=== PATIENT | male | born 2005 | race Caucasian/White ===

== ENCOUNTER 2025-05-27 18:18 | Emergency (ER) | payer BC, SELFPAY ==
[2025-05-27 18:33] VITALS: BP 119/63; PULSE 66; RESP 20; TEMP 36.8; O2SAT 100
--- NOTE | 2025-05-27 18:36 | ED.EAR ---
HPI - Ear Problem General Chief complaint: Ear Stated complaint: Pain in eardrum in right side patient presents to the [facility] accompanied by significant other with complaints of right ear pain that began over the last few days. patient noted cold-like symptoms for the last week week and a half which have improved but then noticed the ear pain and pain down hit the side of his back. Patient reports he is prone to ear infections and believes that this is what he has. Has been using ibuprofen but this is no longer helping with the pain. Denies fever, chills, body aches, dizziness, drainage from the right ear, sore throat, difficulty swallowing, nausea, vomiting, diarrhea. Related Data Allergies Allergy/AdvReac Type Severity Reaction Status Date / Time No Known Allergies Allergy Verified 05/27/25 18:39 Review of Systems Constitutional: Constitutional: Reports as per HPI, Denies chills, Denies fatigue, Denies fever(s) and Denies weakness Eyes: Eyes: Reports no additional eye complaints ENT: Reports as per HPI, Denies vertigo, Denies dizziness, Denies nasal congestion and Denies sore throat Comments: Right ear pain Cardiovascular: Cardiovascular: Reports no additional cardiovascular complaints Respiratory: Respiratory: Reports as per HPI, Denies chest congestion, Denies cough, Denies dyspnea and Denies wheezing Gastrointestinal: Gastrointestinal: Reports no additional gastrointestinal complaints Genitourinary: Genitourinary: Reports no additional male genitourinary complaints Musculoskeletal: Musculoskeletal: Reports as per HPI, Denies back pain and Denies myalgias Integumentary/Breasts: Skin/Breast: Reports as per HPI, Denies erythema and Denies rash Neurologic: Reports as per HPI, Denies vertigo, Denies dizziness, Reports headache(s) and Denies weakness Psychiatric: Psychiatric: Reports no additional psychiatric complaints Endocrine: Endocrine: Reports no additional endocrine complaints Hematologic/Lymphatic: Hematologic/Lymphatic: Reports no additional hematologic/lymphatic complaints Allergic/Immunologic: Allergic/Immunologic: Reports no additional allergic/immunologic complaints Exam Const: General: healthy appearing and no acute distress Nutritional Appearance: well nourished Orientation/consciousness: patient oriented x3 Limitations: no limitations HENMT: Head: normal to inspection Ears: external ears normal and TM's abnormal bilaterally Face/Nose/Sinus: Normal external nose present, Normal nares present and Nasal discharge present Face and sinus: normal facial exam and sinuses nontender Mouth: Yes Normal oral and palatal mucosa present, Yes lip normal and Yes moist mucous membranes Throat: posterior oropharynx abnormal Other: significant cerumen noted in left ear canal. Moderate cerumen noted in right ear canal able to see TM significant erythema with loss of bony landmarks to right TM. Neck: Neck: normal visual inspection and no lymphadenopathy Resp: Effort & Inspection: normal respiratory effort Auscultation: clear to auscultation bilaterally Cardio: Rate: regular rate Rhythm: regular rhythm Skin: General skin exam: normal color Rashes: no rashes Wounds: no wounds Neuro: General: patient oriented x3 and moves all extremities Speech: normal speech Gait exam (Neuro): Normal gait present Psych: Mental Status: mental status grossly normal Affect: normal affect Attitude: cooperative Course Course Level of Care: Express Care Visit Vital Signs Vital signs: Vital Signs Temperature 98.3 F 05/27/25 18:33 Pulse Rate 66 05/27/25 18:33 Respiratory Rate 20 05/27/25 18:33 Blood Pressure 119/63 05/27/25 18:33 Pulse Oximetry 100 05/27/25 18:33 Oxygen Delivery Room Air 05/27/25 18:33 Temperature 98.3 F 05/27/25 18:33 Pulse Rate 66 05/27/25 18:33 Respiratory Rate 20 05/27/25 18:33 Blood Pressure 119/63 05/27/25 18:33 Pulse Oximetry 100 05/27/25 18:33 Oxygen Delivery Room Air 05/27/25 18:33 Medical Decision Making MDM Narrative Medical decision making narrative: AOM right noted The patient was evaluated by myself in the express care. History is obtained from patient who is an independent historian and physical exam was performed. Available medical records were reviewed at this time. Exam findings show no acute concerns or changes; patient is non-toxic appearing and is in no distress. Patient is appropriate for outpatient treatment and follow-up. I have evaluated and discussed social determinants of health with the patient that could potentially impact subsequent diagnosis and treatment plans. Differential diagnosis and treatment plan were discussed with the patient. Patient agrees with discussion and after shared medical decision making agrees with plan of care. All questions were answered to the patient's satisfaction. Differential Diagnosis Differential Diagnosis: AOM, otitis externa, sinusitis, headache Medical Records Medical records reviewed: Yes I reviewed the external patient's medical records. Vital Signs Vital Signs: Vital Signs Temperature 98.3 F 11/16/25 18:33 Pulse Rate 66 05/27/25 18:33 Respiratory Rate 20 05/27/25 18:33 Blood Pressure 119/63 05/27/25 18:33 Pulse Oximetry 100 05/27/25 18:33 Oxygen Delivery Room Air 05/27/25 18:33 Temperature 98.3 F 05/27/25 18:33 Pulse Rate 66 05/27/25 18:33 Respiratory Rate 20 05/27/25 18:33 Blood Pressure 119/63 05/27/25 18:33 Pulse Oximetry 100 05/27/25 18:33 Oxygen Delivery Room Air 05/27/25 18:33 Discharge Plan Discharge Clinical Impression: Acute otitis media, right Patient Disposition: Home Condition: Stable Instructions: Antibiotic Form, Ear Infection (ED) Additional Instructions: take the antibiotics until gone. May use probiotics or yogurt daily to help with upset stomach /diarrhea with antibiotic use. May use Tylenol and ibuprofen to help with pain or fever. May use warm compresses to the outside of the ear to help with pain. Can also use Sudafed and Flonase nasal spray to help with symptoms associated with ear infection and help the ears drain. Follow-up with primary care physician if symptoms not improving or worsen. Patient Language: Syrian Prescriptions: New amoxicillin 875 mg tablet 875 mg PO Q12H Qty: 20 0RF Follow-up/Referrals: UNKNOWN,DOCTOR [Primary Care Provider] Time of Disposition: 18:47
== END 2025-05-27 18:51 | disposition home or self-care (01) ==
PROVIDERS: Emergency Provider Nurse Practitioner Family
DX: H66.91 Otitis media, unspecified, right ear (principal)
CPT/HCPCS: 99203; G0463